=== PATIENT | male | born 1985 | race Caucasian/White ===

== ENCOUNTER 2017-04-09 05:42 | Emergency (ER) | payer MEDICAID, OTHER ==
[~2017-04-09] VITALS: Ht 177.8 cm; Wt 77.0 kg
[2017-04-09 08:01] LABS: HEMATOCRIT 44.4 % (42.0-52.0); HEMOGLOBIN 15.1 g/dL (14.0-18.0); MEAN CORPUSCULAR HEMOGLOBIN 32.7 pg (28.0-32.0); MEAN CORPUSCULAR VOLUME 96.4 fL (80.0-94.0); PLATELET 123 x1000/uL (130-400); RED BLOOD CELL COUNT 4.61 mill/uL (4.7-6.1); RED CELL DISTRIBUTION WIDTH 13.5 % (11.6-14.6)
[2017-04-09 08:09] LABS: CARBON DIOXIDE 32 mEq/L (21-32); CHLORIDE 106 mEq/L (98-107)
[2017-04-09 09:42] VITALS: BP 112/71
== END 2017-04-09 09:45 | disposition home or self-care (01) ==
LOC: ER 06:08
DX: G40.909 Epilepsy, unspecified, not intractable, without status epilepticus (principal); F12.90 Cannabis use, unspecified, uncomplicated; Z88.0 Allergy status to penicillin; Z86.59 Personal history of other mental and behavioral disorders
CPT/HCPCS: 36415; 80048; 85027; 99284

== ENCOUNTER 2017-07-06 05:36 | Emergency (ER) | payer MEDICAID, OTHER ==
[~2017-07-06] VITALS: Ht 170.2 cm; Wt 73.0 kg
[2017-07-06] MEDS ORDERED: SODIUM CHLORIDE 0.9% 1,000 ML IV ONE (05:43)
[2017-07-06 06:34] LABS: BASOPHILS % 0.3 % (0.0-2.0); EOSINOPHILS % 0.5 % (0.0-5.0); HEMATOCRIT. 42.3 % (42.0-52.0); HEMOGLOBIN. 14.5 g/dL (14.0-18.0); LYMPHOCYTES % 15.8 % (20.0-50.0); MEAN CORPUSCULAR HEMOGLOBIN 33.1 pg (28.0-32.0); MEAN CORPUSCULAR VOLUME 96.2 fL (80.0-94.0); MEAN PLATELET VOLUME 11.5 fl (7.4-10.4); MONOCYTES % 5.9 % (2.0-8.0); NEUTROPHILS % 77.5 % (40.0-76.0); PLATELET 122 x1000/uL (130-400); RED CELL DISTRIBUTION WIDTH 13.5 % (11.6-14.6)
[2017-07-06 06:42] LABS: CHLORIDE 104 mEq/L (98-107); ETHANOL BLOOD 12 mg/dL
[2017-07-06 06:47] LABS: CARBAMAZEPINE 0.7 ug/mL (4-12); CREATINE KINASE 59 IU/L (39-308)
[2017-07-06 06:54] LABS: PHENOBARBITAL < 2.1 ug/mL (15.0-40.0); VALPROIC ACID < 3.0 ug/mL (50-100)
[2017-07-06 08:37] LABS: *AMPHETAMINES SCREEN URINE NEGATIVE (NEGATIVE); *BARBITURATES SCREEN URINE NEGATIVE (NEGATIVE); *BENZODIAZEPINES SCREEN URINE NEGATIVE (NEGATIVE); *COCAINE SCREEN URINE NEGATIVE (NEGATIVE); CANNABINOID URINE SCREEN PRESUMTIVE POSITIVE (NEGATIVE); METHADONE URINE SCREEN NEGATIVE (NEGATIVE); OPIATES URINE SCREEN NEGATIVE (NEGATIVE); PHENCYCLIDINE URINE SCREEN NEGATIVE (NEGATIVE)
[2017-07-06] MEDS ORDERED: CARBAMAZEPINE 100MG TABLET CHEW PO ONE (09:45)
[2017-07-06 10:34] VITALS: BP 116/57
== END 2017-07-06 10:36 | disposition home or self-care (01) ==
LOC: ER 05:36
DX: R56.9 Unspecified convulsions (principal); R51 Headache; F32.9 Major depressive disorder, single episode, unspecified; F12.10 Cannabis abuse, uncomplicated; Z88.0 Allergy status to penicillin
CPT/HCPCS: 36415; 80053; 80156; 80165; 80184; 80185; 80305; 82550; 82962; 85025; 96360; 96361; 99285; G0482; J7030

== ENCOUNTER 2017-08-29 20:07 | Inpatient (IN) | payer MEDICAID ==
[~2017-08-29] VITALS: Ht 177.8 cm; Wt 86.6 kg
[2017-08-29] MEDS ORDERED: SODIUM CHLORIDE 0.9% 1,000 ML IV ONE (20:13)
[2017-08-29] MEDS ORDERED: LORAZEPAM 2MG/ML CPJ IV ONE ×2 (20:45→21:30)
[2017-08-29] MEDS ORDERED: LORAZEPAM 2MG/ML CPJ IV NR (21:45)
[2017-08-29 21:52] LABS: HEMATOCRIT. 41.3 % (42.0-52.0); MEAN CORPUSCULAR HEMOGLOBIN 32.7 pg (28.0-32.0); MEAN CORPUSCULAR VOLUME 96.5 fL (80.0-94.0); MEAN PLATELET VOLUME 11.6 fl (7.4-10.4); PLATELET 123 x1000/uL (130-400); RED BLOOD CELL COUNT 4.28 mill/uL (4.7-6.1); RED CELL DISTRIBUTION WIDTH 13.4 % (11.6-14.6)
[2017-08-29 21:55] LABS: CHLORIDE 110 mEq/L (98-107)
[2017-08-29 21:56] LABS: PROTHROMBIN TIME 10.6 sec (9.4-11.6)
[2017-08-29 22:02] LABS: ETHANOL BLOOD < 10 mg/dL
[2017-08-29 22:05] LABS: AMMONIA 35 uMol/L (<32)
[2017-08-29 22:06] LABS: CREATINE KINASE 131 IU/L (39-308)
[2017-08-29 22:10] LABS: CARBAMAZEPINE 1.2 ug/mL (4-12); PLATELET ESTIMATE DECREASED
[2017-08-29 22:14] LABS: PHENOBARBITAL < 2.1 ug/mL (15.0-40.0); VALPROIC ACID < 3.0 ug/mL (50-100)
[2017-08-29] MEDS ORDERED: LACTULOSE 20G/30ML UDC PO NR (22:15)
[2017-08-29] MEDS ORDERED: MAGNESIUM/ALUMINUM HYDROXIDE/SIMETHICONE 30ML UDC PO PRN (22:45)
[2017-08-29] MEDS ORDERED: CLONIDINE 0.1MG TABLET PO PRN (22:45)
[2017-08-29] MEDS ORDERED: DOCUSATE SODIUM 100MG CAPSULE PO PRN (22:45)
[2017-08-29] MEDS ORDERED: ONDANSETRON 4MG ODT PO PRN (22:45)
[2017-08-29] MEDS ORDERED: LORAZEPAM 2MG/ML CPJ IV PRN (22:45)
[2017-08-29] MEDS ORDERED: IPRATROPIUM/ALBUTEROL 0.5-3(2.5)MG/3ML NEB INH PRN (22:45)
[2017-08-29] MEDS ORDERED: PHENYTOIN SODIUM 1,000 MG in SODIUM CHLORIDE 0.9% 100 ML IV NR (23:30)
[2017-08-29] MEDS: SODIUM CHLORIDE 0.9% 1,000 ML IV SCH (23:39)
[2017-08-30] VITALS (9 sets, daily range): BP systolic 103–134; BP diastolic 55–71
[2017-08-30 00:31] LABS: CHLORIDE 107 mEq/L (98-107)
[2017-08-30] MEDS: SODIUM CHLORIDE 0.9% 1,000 ML IV SCH ×2 (01:30→13:46)
[2017-08-30 02:51] LABS: CLARITY URINE CLOUDY (CLEAR); COLOR URINE YELLOW (YELLOW); KETONES URINE NEGATIVE (NEGATIVE); LEUKOCYTE ESTERASE URINE NEGATIVE (NEGATIVE); NITRITE URINE NEGATIVE (NEGATIVE); OCCULT BLOOD URINE NEGATIVE (NEGATIVE); PROTEIN URINE NEGATIVE (NEGATIVE); SPECIFIC GRAVITY URINE 1.014 (1.005-1.030); UROBILINOGEN URINE 0.2 E.U./dL (0.2-1.0)
[2017-08-30 03:10] LABS: *AMPHETAMINES SCREEN URINE NEGATIVE (NEGATIVE); *BARBITURATES SCREEN URINE NEGATIVE (NEGATIVE); *BENZODIAZEPINES SCREEN URINE PRESUMTIVE POSITIVE (NEGATIVE); CANNABINOID URINE SCREEN PRESUMTIVE POSITIVE (NEGATIVE); PHENCYCLIDINE URINE SCREEN NEGATIVE (NEGATIVE)
[2017-08-30 03:11] LABS: *COCAINE SCREEN URINE NEGATIVE (NEGATIVE); METHADONE URINE SCREEN NEGATIVE (NEGATIVE); OPIATES URINE SCREEN NEGATIVE (NEGATIVE)
[2017-08-30] MEDS: ACETAMINOPHEN 325MG TABLET PO PRN ×2 (04:07→13:45)
[2017-08-30] MEDS: ENOXAPARIN 30MG/0.3ML SYR SUBCUT SCH ×2 (08:46→20:37)
[2017-08-30] MEDS ORDERED: CARBAMAZEPINE 200MG TABLET PO SCH (09:00)
[2017-08-30] MEDS ORDERED: ACETAMINOPHEN 650MG SUPP PR PRN (09:15)
[2017-08-30] MEDS ORDERED: HYDROCODONE/ACETAMINOPHEN 5/325MG TABLET PO PRN (09:15)
[2017-08-30] MEDS ORDERED: IPRATROPIUM/ALBUTEROL 0.5-3(2.5)MG/3ML NEB INH PRN (09:15)
[2017-08-30] MEDS ORDERED: NA PHOS,M-B/NA PHOS,DI-BA ENEMA 118ML PR PRN (09:15)
[2017-08-30] MEDS ORDERED: HYDROCODONE/ACETAMINOPHEN 10/325MG TABLET PO PRN (09:15)
[2017-08-30] MEDS ORDERED: ACETAMINOPHEN 650MG/20.3ML UDC GT PRN (09:15)
[2017-08-30] MEDS ORDERED: LORAZEPAM 2MG/ML CPJ IV PRN (09:15)
[2017-08-30] MEDS ORDERED: MAGNESIUM/ALUMINUM HYDROXIDE/SIMETHICONE 30ML UDC PO PRN (09:15)
[2017-08-30] MEDS ORDERED: DIPHENHYDRAMINE 50MG/ML VIAL IV PRN (09:15)
[2017-08-30] MEDS ORDERED: CLONIDINE 0.1MG TABLET PO PRN (09:15)
[2017-08-30] MEDS ORDERED: ONDANSETRON HCL 4MG/2ML VIAL IV PRN (09:15)
[2017-08-30] MEDS ORDERED: ACETAMINOPHEN 325MG TABLET PO PRN (09:15)
[2017-08-30 10:33] LABS: BASOPHILS % 0.2 % (0.0-2.0); EOSINOPHILS % 0.1 % (0.0-5.0); HEMATOCRIT. 38.9 % (42.0-52.0); HEMOGLOBIN. 13.6 g/dL (14.0-18.0); LYMPHOCYTES % 15.7 % (20.0-50.0); MEAN CORPUSCULAR HEMOGLOBIN 33.3 pg (28.0-32.0); MEAN CORPUSCULAR VOLUME 95.3 fL (80.0-94.0); MEAN PLATELET VOLUME 11.1 fl (7.4-10.4); MONOCYTES % 9.5 % (2.0-8.0); NEUTROPHILS % 74.5 % (40.0-76.0); PLATELET 100 x1000/uL (130-400); RED BLOOD CELL COUNT 4.08 mill/uL (4.7-6.1); RED CELL DISTRIBUTION WIDTH 13.3 % (11.6-14.6)
[2017-08-30] MEDS ORDERED: CARB200C4 MT (11:19)
[2017-08-30] MEDS ORDERED: FLUO20CA33 MT (11:19)
[2017-08-30] MEDS ORDERED: MORPHINE SULFATE 2 MG/ML CPJ (NOT FOR IM USE) IV PRN (12:15)
[2017-08-30] MEDS ORDERED: PHENYTOIN SODIUM EXTENDED 100MG CAPSULE PO SCH (14:00)
[2017-08-30] MEDS ORDERED: LORAZEPAM 2MG/ML CPJ IM PRN (17:15)
[2017-08-30] MEDS: FLUOXETINE HCL 20MG CAPSULE PO SCH (17:49)
[2017-08-30] MEDS: PHENYTOIN SODIUM EXTENDED 100MG CAPSULE PO SCH (20:37)
[2017-08-31] MEDS: SODIUM CHLORIDE 0.9% 1,000 ML IV SCH ×2 (00:54→14:33)
[2017-08-31 04:00] VITALS: BP 98/58
[2017-08-31 07:00] LABS: BASOPHILS % 0.4 % (0.0-2.0); EOSINOPHILS % 0.8 % (0.0-5.0); HEMATOCRIT. 39.1 % (42.0-52.0); HEMOGLOBIN. 13.6 g/dL (14.0-18.0); LYMPHOCYTES % 33.3 % (20.0-50.0); MEAN CORPUSCULAR HEMOGLOBIN 33.3 pg (28.0-32.0); MONOCYTES % 8.4 % (2.0-8.0); NEUTROPHILS % 57.1 % (40.0-76.0); PLATELET 95 x1000/uL (130-400); RED BLOOD CELL COUNT 4.08 mill/uL (4.7-6.1); RED CELL DISTRIBUTION WIDTH 12.8 % (11.6-14.6)
[2017-08-31 07:29] LABS: CHLORIDE 107 mEq/L (98-107)
[2017-08-31 08:00] VITALS: BP 115/57
[2017-08-31] MEDS: FLUOXETINE HCL 20MG CAPSULE PO SCH (08:12)
[2017-08-31] MEDS: ENOXAPARIN 30MG/0.3ML SYR SUBCUT SCH ×2 (08:13→21:33)
[2017-08-31 12:00] VITALS: BP 116/68
[2017-08-31] MEDS ORDERED: PHENYTOIN SODIUM 600 MG in SODIUM CHLORIDE 0.9% 100 ML IV NR (13:30)
[2017-08-31 15:34] VITALS: BP 119/70
[2017-08-31 20:00] VITALS: BP 137/84
[2017-08-31] MEDS: PHENYTOIN SODIUM EXTENDED 100MG CAPSULE PO SCH (21:32)
[2017-09-01] VITALS: BP 116/79
[2017-09-01] MEDS: SODIUM CHLORIDE 0.9% 1,000 ML IV SCH (02:29)
[2017-09-01 04:00] VITALS: BP 120/65
[2017-09-01 08:00] VITALS: BP 118/117
[2017-09-01] MEDS: FLUOXETINE HCL 20MG CAPSULE PO SCH (09:11)
[2017-09-01 10:05] LABS: BASOPHILS % 0.4 % (0.0-2.0); EOSINOPHILS % 0.3 % (0.0-5.0); HEMATOCRIT. 42.4 % (42.0-52.0); HEMOGLOBIN. 14.7 g/dL (14.0-18.0); MEAN CORPUSCULAR HEMOGLOBIN 33.3 pg (28.0-32.0); MEAN CORPUSCULAR VOLUME 96.1 fL (80.0-94.0); MEAN PLATELET VOLUME 11.8 fl (7.4-10.4); MONOCYTES % 7.4 % (2.0-8.0); NEUTROPHILS % 69.9 % (40.0-76.0); PLATELET 108 x1000/uL (130-400); RED BLOOD CELL COUNT 4.42 mill/uL (4.7-6.1); RED CELL DISTRIBUTION WIDTH 13.4 % (11.6-14.6)
[2017-09-01 11:20] VITALS: BP 144/83
[2017-09-01 12:00] VITALS: BP 144/83
== END 2017-09-01 12:28 | disposition home or self-care (01) | DRG 351 ==
LOC: ER 20:18 → 8WST 22:19 → EDBEDREQ 22:20 → ENRESERV 22:57
PROVIDERS: ADMIT Internal Medicine; ATTEND Internal Medicine
DX: M62.82 Rhabdomyolysis (principal); E72.20 Disorder of urea cycle metabolism, unspecified; Q28.3 Other malformations of cerebral vessels; D69.6 Thrombocytopenia, unspecified; G40.409 Other generalized epilepsy and epileptic syndromes, not intractable, without status epilepticus; D64.9 Anemia, unspecified; F12.90 Cannabis use, unspecified, uncomplicated; F32.9 Major depressive disorder, single episode, unspecified; F41.9 Anxiety disorder, unspecified; F17.210 Nicotine dependence, cigarettes, uncomplicated; F41.0 Panic disorder [episodic paroxysmal anxiety]; Z91.14 Patient's other noncompliance with medication regimen; Z88.0 Allergy status to penicillin; Z71.51 Drug abuse counseling and surveillance of drug abuser
CPT/HCPCS: 36415; 70450; 70551; 71045; 80048; 80053; 80061; 80156; 80165; 80184; 80185; 80305; 80307; 80329; 81003; 82140; 82550; 82553; 82962; 83605; 83735; 84443; 84484; 85025; 85610; 87040; 87086; 93005; 93970; 96361; 96365; 96375; 96376; 97161; 97165; 99291; G0482; J1165; J1650; J2060; J7030; J7050; A4315

== ENCOUNTER 2017-10-10 05:33 | Emergency (ER) | payer MEDICAID ==
[~2017-10-10] VITALS: Ht 177.8 cm; Wt 82.0 kg
[~2017-10-10 05:33] MED LIST: FLUO20CA33 MT
[2017-10-10 07:49] LABS: BASOPHILS % 0.5 % (0.0-2.0); EOSINOPHILS % 0.4 % (0.0-5.0); HEMATOCRIT. 43.7 % (42.0-52.0); LYMPHOCYTES % 13.8 % (20.0-50.0); MEAN CORPUSCULAR HEMOGLOBIN 33.2 pg (28.0-32.0); MEAN CORPUSCULAR VOLUME 96.7 fL (80.0-94.0); MEAN PLATELET VOLUME 11.5 fl (7.4-10.4); MONOCYTES % 7.7 % (2.0-8.0); NEUTROPHILS % 77.6 % (40.0-76.0); PLATELET 100 x1000/uL (130-400); RED BLOOD CELL COUNT 4.52 mill/uL (4.7-6.1); RED CELL DISTRIBUTION WIDTH 13.6 % (11.6-14.6)
[2017-10-10 07:51] LABS: CHLORIDE 107 mEq/L (98-107)
[2017-10-10] MEDS ORDERED: PHENYTOIN SODIUM 1,000 MG in SODIUM CHLORIDE 0.9% 100 ML IV ONE (08:30)
[2017-10-10 11:09] VITALS: BP 142/73
== END 2017-10-10 11:13 | disposition home or self-care (01) ==
LOC: ER 05:33
DX: G40.909 Epilepsy, unspecified, not intractable, without status epilepticus (principal); S01.552A Open bite of oral cavity, initial encounter; X58.XXXA Exposure to other specified factors, initial encounter; Y93.89 Activity, other specified; Y92.89 Other specified places as the place of occurrence of the external cause; Z88.0 Allergy status to penicillin
CPT/HCPCS: 36415; 80053; 80185; 85025; 96365; 96366; 99285; J1165; J7050

== ENCOUNTER 2017-10-12 20:44 | Emergency (ER) | payer MEDICAID ==
[~2017-10-12] VITALS: Ht 180.3 cm; Wt 120.0 kg
[2017-10-12] MEDS ORDERED: PHEN100C4 PO (21:02)
[2017-10-12] MEDS ORDERED: SODIUM CHLORIDE 0.9% 1,000 ML IV ONE ×2 (21:35→23:21)
[2017-10-12 23:03] LABS: *AMPHETAMINES SCREEN URINE NEGATIVE (NEGATIVE); *BARBITURATES SCREEN URINE NEGATIVE (NEGATIVE); *BENZODIAZEPINES SCREEN URINE NEGATIVE (NEGATIVE); *COCAINE SCREEN URINE NEGATIVE (NEGATIVE)
[2017-10-12 23:04] LABS: CANNABINOID URINE SCREEN PRESUMTIVE POSITIVE (NEGATIVE); METHADONE URINE SCREEN NEGATIVE (NEGATIVE); OPIATES URINE SCREEN NEGATIVE (NEGATIVE); PHENCYCLIDINE URINE SCREEN NEGATIVE (NEGATIVE)
[2017-10-12 23:07] LABS: BASOPHILS % 0.2 % (0.0-2.0); EOSINOPHILS % 0.1 % (0.0-5.0); HEMATOCRIT. 41.2 % (42.0-52.0); HEMOGLOBIN. 14.1 g/dL (14.0-18.0); LYMPHOCYTES % 8.6 % (20.0-50.0); MEAN CORPUSCULAR VOLUME 96.2 fL (80.0-94.0); MEAN PLATELET VOLUME 11.3 fl (7.4-10.4); MONOCYTES % 3.6 % (2.0-8.0); NEUTROPHILS % 87.5 % (40.0-76.0); PLATELET 108 x1000/uL (130-400); RED BLOOD CELL COUNT 4.29 mill/uL (4.7-6.1); RED CELL DISTRIBUTION WIDTH 13.5 % (11.6-14.6)
[2017-10-12 23:09] LABS: CHLORIDE 109 mEq/L (98-107)
[2017-10-12 23:13] LABS: ETHANOL BLOOD 231 mg/dL
[2017-10-13] MEDS ORDERED: PHENYTOIN SODIUM 500 MG in SODIUM CHLORIDE 0.9% 50 ML IV ONE (00:15)
[2017-10-13 01:02] VITALS: BP 112/68
== END 2017-10-13 01:02 | disposition home or self-care (01) ==
LOC: ER 20:51
DX: T40.7X1A Poisoning by cannabis (derivatives), accidental (unintentional), initial encounter (principal); F10.129 Alcohol abuse with intoxication, unspecified; G40.909 Epilepsy, unspecified, not intractable, without status epilepticus; Z88.0 Allergy status to penicillin; Y90.7 Blood alcohol level of 200-239 mg/100 ml; Y92.89 Other specified places as the place of occurrence of the external cause
CPT/HCPCS: 36415; 80048; 80185; 80305; 85025; 96361; 96365; 99285; G0482; J1165; J7030

== ENCOUNTER 2018-03-16 07:22 | Emergency (ER) | payer MEDICAID ==
[~2018-03-16] VITALS: Ht 172.7 cm; Wt 70.0 kg
[~2018-03-16 07:22] MED LIST changes: +PHEN100C4 PO
[2018-03-16] MEDS ORDERED: SODIUM CHLORIDE 0.9% 1,000 ML IV ONE (07:34)
[2018-03-16 08:12] LABS: BASOPHILS % 0.2 % (0.0-2.0); EOSINOPHILS % 0.7 % (0.0-5.0); HEMOGLOBIN. 15.2 g/dL (14.0-18.0); LYMPHOCYTES % 24.6 % (20.0-50.0); MEAN CORPUSCULAR HEMOGLOBIN 33.6 pg (28.0-32.0); MEAN CORPUSCULAR VOLUME 97.5 fL (80.0-94.0); MEAN PLATELET VOLUME 12.5 fl (7.4-10.4); MONOCYTES % 4.7 % (2.0-8.0); NEUTROPHILS % 69.8 % (40.0-76.0); PLATELET 129 x1000/uL (130-400); RED BLOOD CELL COUNT 4.52 mill/uL (4.7-6.1); RED CELL DISTRIBUTION WIDTH 13.4 % (11.6-14.6)
[2018-03-16 08:18] LABS: CHLORIDE 106 mEq/L (98-107)
[2018-03-16 08:24] LABS: ETHANOL BLOOD < 10 mg/dL
[2018-03-16] MEDS ORDERED: PHENYTOIN SODIUM EXTENDED 100MG CAPSULE PO ONE (10:15)
[2018-03-16] MEDS ORDERED: ACETAMINOPHEN 325MG TABLET PO ONE (10:30)
[2018-03-16 13:29] VITALS: BP 110/73
== END 2018-03-16 11:50 | disposition home or self-care (01) ==
LOC: ER 07:22
DX: G40.89 Other seizures (principal); D72.829 Elevated white blood cell count, unspecified; E87.6 Hypokalemia; R73.9 Hyperglycemia, unspecified; R78.89 Finding of other specified substances, not normally found in blood; Z88.0 Allergy status to penicillin; Z79.899 Other long term (current) drug therapy
CPT/HCPCS: 36415; 80053; 80185; 85025; 96360; 96361; 99283; G0482; J7030

== ENCOUNTER 2019-02-02 06:29 | Emergency (ER) | payer SELFPAY ==
[~2019-02-02] VITALS: Ht 177.8 cm; Wt 66.0 kg
[2019-02-02 08:39] LABS: CLARITY URINE CLEAR (CLEAR); COLOR URINE YELLOW (YELLOW); KETONES URINE NEGATIVE (NEGATIVE); LEUKOCYTE ESTERASE URINE NEGATIVE (NEGATIVE); NITRITE URINE NEGATIVE (NEGATIVE); OCCULT BLOOD URINE 1+ (NEGATIVE); PROTEIN URINE 1+ (NEGATIVE); SPECIFIC GRAVITY URINE 1.015 (1.005-1.030); UROBILINOGEN URINE 0.2 E.U./dL (0.2-1.0)
[2019-02-02 08:53] LABS: *AMPHETAMINES SCREEN URINE NEGATIVE (NEGATIVE); *BARBITURATES SCREEN URINE NEGATIVE (NEGATIVE); *BENZODIAZEPINES SCREEN URINE PRESUMTIVE POSITIVE (NEGATIVE); *COCAINE SCREEN URINE NEGATIVE (NEGATIVE); METHADONE URINE SCREEN NEGATIVE (NEGATIVE)
[2019-02-02 08:54] LABS: CANNABINOID URINE SCREEN PRESUMTIVE POSITIVE (NEGATIVE); OPIATES URINE SCREEN NEGATIVE (NEGATIVE); PHENCYCLIDINE URINE SCREEN NEGATIVE (NEGATIVE)
[2019-02-02] MEDS ORDERED: KETOROLAC 30MG/ML VIAL IV ONE (10:00)
[2019-02-02 10:13] LABS: HEMATOCRIT. 39.1 % (42.0-52.0); HEMOGLOBIN. 13.4 g/dL (14.0-18.0); MEAN CORPUSCULAR HEMOGLOBIN 33.4 pg (28.0-32.0); MEAN CORPUSCULAR VOLUME 97.7 fL (80.0-94.0); MEAN PLATELET VOLUME 11.4 fl (7.4-10.4); PLATELET 100 x1000/uL (130-400); RED CELL DISTRIBUTION WIDTH 13.7 % (11.6-14.6)
[2019-02-02 10:18] LABS: CHLORIDE 108 mEq/L (98-107)
[2019-02-02 10:24] LABS: ETHANOL BLOOD < 10 mg/dL
[2019-02-02 10:33] LABS: VALPROIC ACID < 3.0 ug/mL (50-100)
[2019-02-02] MEDS ORDERED: PHENYTOIN SODIUM 1,000 MG in SODIUM CHLORIDE 0.9% 100 ML IV ONE (10:45)
[2019-02-02 10:47] LABS: PLATELET ESTIMATE DECREASED
[2019-02-02 11:09] VITALS: BP 103/49
== END 2019-02-02 12:34 | disposition home or self-care (01) ==
LOC: ER 06:29
DX: G40.909 Epilepsy, unspecified, not intractable, without status epilepticus (principal); R32 Unspecified urinary incontinence; R03.0 Elevated blood-pressure reading, without diagnosis of hypertension
CPT/HCPCS: 36415; 80053; 80165; 80185; 80305; 80320; 81003; 85025; 96365; 96375; 99283; J1165; J1885; J7050; Z7610; G0480

== ENCOUNTER 2019-04-21 04:14 | Inpatient (IN) | payer MEDICAID, MEDICARE ==
[~2019-04-21] VITALS: Ht 175.3 cm; Wt 82.0 kg
[2019-04-21] MEDS ORDERED: MORPHINE SULFATE 4 MG/ML CPJ (NOT FOR IM USE) IV STA (04:33)
[2019-04-21] MEDS ORDERED: SODIUM CHLORIDE 0.9% 1,000 ML IV ONE (04:33)
[2019-04-21] MEDS ORDERED: ONDANSETRON HCL 4MG/2ML INJ IV STA (04:33)
[2019-04-21] MEDS ORDERED: LORAZEPAM 2MG/ML CPJ IV ONE (04:45)
[2019-04-21 05:14] LABS: BASOPHILS % 0.6 % (0.0-2.0); EOSINOPHILS % 0.6 % (0.0-5.0); HEMATOCRIT. 39.2 % (42.0-52.0); HEMOGLOBIN. 13.3 g/dL (14.0-18.0); LYMPHOCYTES % 23.8 % (20.0-50.0); MEAN CORPUSCULAR HEMOGLOBIN 33.4 pg (28.0-32.0); MEAN CORPUSCULAR VOLUME 98.3 fL (80.0-94.0); MEAN PLATELET VOLUME 11.5 fl (7.4-10.4); PLATELET 134 x1000/uL (130-400); RED BLOOD CELL COUNT 3.99 mill/uL (4.7-6.1); RED CELL DISTRIBUTION WIDTH 13.8 % (11.6-14.6)
[2019-04-21 05:18] LABS: CHLORIDE 113 mEq/L (98-107)
[2019-04-21 05:22] LABS: ETHANOL BLOOD < 10 mg/dL
[2019-04-21] MEDS ORDERED: ONDANSETRON HCL 4MG/2ML INJ IV PRN (09:45)
[2019-04-21] MEDS ORDERED: IPRATROPIUM/ALBUTEROL 0.5-3(2.5)MG/3ML NEB NEB PRN (09:45)
[2019-04-21] MEDS ORDERED: CLONIDINE 0.1MG TABLET PO PRN (09:45)
[2019-04-21] MEDS ORDERED: POTASSIUM CHLORIDE INJ 40 MEQ in DEXT 5% WATER 250 ML IV ONE (09:45)
[2019-04-21] MEDS ORDERED: ACETAMINOPHEN 325MG TABLET PO PRN (09:45)
[2019-04-21] MEDS ORDERED: GUAIFENESIN 200MG/10ML SUGAR FREE UDC PO PRN (09:45)
[2019-04-21] MEDS ORDERED: DOCUSATE SODIUM 100MG CAPSULE PO PRN (09:45)
[2019-04-21] MEDS ORDERED: MAGNESIUM/ALUMINUM HYDROXIDE/SIMETHICONE 30ML UDC PO PRN (09:45)
[2019-04-21] MEDS ORDERED: LORAZEPAM 0.5MG TABLET PO PRN (09:45)
[2019-04-21] MEDS ORDERED: NA PHOS,M-B/NA PHOS,DI-BA ENEMA 118ML PR PRN (09:45)
[2019-04-21] MEDS ORDERED: ACETAMINOPHEN 650MG SUPP PR PRN (09:45)
[2019-04-21] MEDS ORDERED: DIPHENHYDRAMINE 50MG/ML VIAL IV PRN (09:45)
[2019-04-21] MEDS ORDERED: DEXT 5%/0.45% NACL 1000ML 1,000 ML IV SCH (10:17)
[2019-04-21] MEDS ORDERED: VALPROIC ACID 250MG CAPSULE PO SCH (11:45)
[2019-04-21] MEDS ORDERED: LEVETIRACETAM 500MG PREMIX 100 ML IV NR (12:00)
[2019-04-21] MEDS ORDERED: LEVETIRACETAM IV SCH (12:00)
[2019-04-21] MEDS ORDERED: PHENYTOIN SODIUM EXTENDED 100MG CAPSULE PO SCH (12:00)
[2019-04-21] MEDS ORDERED: [UNRECOGNIZED DRUG - OTHER] IV SCH (12:00)
[2019-04-21 12:12] LABS: CREATINE KINASE MB FRACTION 1.9 ng/mL (0.5-3.6)
[2019-04-21] MEDS ORDERED: FLUOXETINE HCL 20MG CAPSULE PO SCH (12:15)
[2019-04-21 12:24] LABS: PROTHROMBIN TIME 10.7 sec (9.6-11.0)
[2019-04-21] MEDS ORDERED: PHENYTOIN SODIUM 100MG/2ML VIAL IV SCH (14:00)
[2019-04-21] MEDS ORDERED: PHENYTOIN SODIUM 1,000 MG in SODIUM CHLORIDE 0.9% 100 ML IV ONE (15:30)
[2019-04-21 16:00] VITALS: BP 97/47
[2019-04-21] MEDS ORDERED: HYDROCODONE/ACETAMINOPHEN 5/325MG TABLET PO PRN (17:53)
[2019-04-21] MEDS ORDERED: LEVETIRACETAM 500MG PREMIX 100 ML IV SCH (21:00)
[2019-04-22] MEDS ORDERED: ENOXAPARIN 40MG/0.4ML SYR SUBCUT SCH (09:00)
== END 2019-04-21 18:18 | disposition home or self-care (01) | DRG 53 ==
LOC: ER 04:27 → 5WST 05:47 → EDBEDREQTM 05:51 → EDBEDREQ 05:51 → SUPCPDRO 09:31 → ENRESERV 15:40
PROVIDERS: ADMIT Internal Medicine; ATTEND Internal Medicine
DX: G40.901 Epilepsy, unspecified, not intractable, with status epilepticus (principal); Q28.3 Other malformations of cerebral vessels; G93.89 Other specified disorders of brain; E86.0 Dehydration; D64.9 Anemia, unspecified; F32.9 Major depressive disorder, single episode, unspecified; E87.6 Hypokalemia; R73.9 Hyperglycemia, unspecified; Z88.0 Allergy status to penicillin
CPT/HCPCS: 36415; 70551; 71045; 80053; 80165; 80185; 80320; 82550; 82553; 85025; 93005; 93970; 99291; J1165; J1953; J2060; J2270; J2405; J3480; J7030; J7050; J7060; G0480

== ENCOUNTER 2021-08-29 08:39 | Emergency (ER) | payer MEDICAID, MEDICARE ==
[~2021-08-29] VITALS: Ht 177.8 cm; Wt 80.0 kg
[2021-08-29] MEDS ORDERED: ACETAMINOPHEN 325MG TABLET PO STA (08:49)
[2021-08-29 10:11] LABS: BASOPHILS % 0.6 % (0.0-2.0); EOSINOPHILS % 0.4 % (0.0-5.0); HEMATOCRIT. 40.3 % (42.0-52.0); HEMOGLOBIN. 13.5 g/dL (14.0-18.0); LYMPHOCYTES % 24.2 % (20.0-50.0); MEAN CORPUSCULAR HEMOGLOBIN 33.1 pg (28.0-32.0); MEAN CORPUSCULAR VOLUME 98.7 fL (80.0-94.0); MEAN PLATELET VOLUME 11.6 fl (7.4-10.4); MONOCYTES % 8.1 % (2.0-8.0); NEUTROPHILS % 66.7 % (40.0-76.0); PLATELET 103 x1000/uL (130-400); RED BLOOD CELL COUNT 4.09 mill/uL (4.7-6.1); RED CELL DISTRIBUTION WIDTH 13.8 % (11.6-14.6)
[2021-08-29 10:21] LABS: CHLORIDE 108 mEq/L (98-107)
[2021-08-29 10:36] LABS: ETHANOL BLOOD < 10 mg/dL
[2021-08-29 11:00] LABS: CLARITY URINE CLEAR (CLEAR); COLOR URINE YELLOW (YELLOW); KETONES URINE NEGATIVE (NEGATIVE); LEUKOCYTE ESTERASE URINE NEGATIVE (NEGATIVE); NITRITE URINE NEGATIVE (NEGATIVE); OCCULT BLOOD URINE NEGATIVE (NEGATIVE); PH URINE 7.5 (4.5-8.0); PROTEIN URINE NEGATIVE (NEGATIVE); SPECIFIC GRAVITY URINE 1.012 (1.005-1.030); UROBILINOGEN URINE 0.2 E.U./dL (0.2-1.0)
[2021-08-29] MEDS ORDERED: VALPROIC ACID 250MG CAPSULE PO ONE (11:15)
[2021-08-29] MEDS ORDERED: PHENYTOIN SODIUM EXTENDED 100MG CAPSULE PO ONE (11:15)
[2021-08-29] MEDS ORDERED: IBUPROFEN 600MG TABLET PO ONE (11:15)
[2021-08-29 11:16] LABS: *AMPHETAMINES SCREEN URINE NEGATIVE (NEGATIVE); *BARBITURATES SCREEN URINE NEGATIVE (NEGATIVE); *BENZODIAZEPINES SCREEN URINE NEGATIVE (NEGATIVE); *COCAINE SCREEN URINE NEGATIVE (NEGATIVE); CANNABINOID URINE SCREEN PRESUMTIVE POSITIVE (NEGATIVE); METHADONE URINE SCREEN NEGATIVE (NEGATIVE); OPIATES URINE SCREEN NEGATIVE (NEGATIVE); PHENCYCLIDINE URINE SCREEN NEGATIVE (NEGATIVE)
[2021-08-29 11:30] VITALS: BP 125/60
== END 2021-08-29 13:12 | disposition home or self-care (01) ==
LOC: ER 09:30
DX: R56.9 Unspecified convulsions (principal); Z88.0 Allergy status to penicillin
CPT/HCPCS: 36415; 80053; 80165; 80185; 80305; 80320; 81003; 85025; 93005; 99284; G0480

== ENCOUNTER 2021-08-29 13:56 | Emergency (ER) | payer MEDICAID ==
[~2021-08-29] VITALS: Ht 177.8 cm; Wt 80.0 kg
[2021-08-29 14:40] LABS: BASOPHILS % 0.3 % (0.0-2.0); EOSINOPHILS % 0.2 % (0.0-5.0); HEMATOCRIT. 38.5 % (42.0-52.0); HEMOGLOBIN. 13.1 g/dL (14.0-18.0); LYMPHOCYTES % 29.1 % (20.0-50.0); MEAN CORPUSCULAR HEMOGLOBIN 33.4 pg (28.0-32.0); MEAN CORPUSCULAR VOLUME 98.3 fL (80.0-94.0); MEAN PLATELET VOLUME 11.3 fl (7.4-10.4); MONOCYTES % 7.7 % (2.0-8.0); NEUTROPHILS % 62.7 % (40.0-76.0); PLATELET 99 x1000/uL (130-400); RED BLOOD CELL COUNT 3.92 mill/uL (4.7-6.1); RED CELL DISTRIBUTION WIDTH 13.4 % (11.6-14.6)
[2021-08-29 14:53] LABS: CHLORIDE 105 mEq/L (98-107)
[2021-08-29 15:01] LABS: ETHANOL BLOOD < 10 mg/dL
[2021-08-29] MEDS ORDERED: PHENYTOIN SODIUM 1,000 MG in SODIUM CHLORIDE 0.9% 100 ML IV ONE (15:45)
[2021-08-29] MEDS ORDERED: PHENYTOIN SODIUM 1,000 MG in SODIUM CHLORIDE 0.9% 100 ML IV NR (15:45)
[2021-08-29] MEDS ORDERED: VALPROATE SODIUM 1,000 MG in DEXT 5% WATER 100 ML IV SCH (16:30)
[2021-08-29 20:24] VITALS: BP 111/66
== END 2021-08-29 20:26 | disposition left against medical advice (07) ==
LOC: ER 13:56 → CANBEDREQ 08-30 21:29
DX: R56.9 Unspecified convulsions (principal)
CPT/HCPCS: 36415; 80053; 80320; 85025; 99285; J1165; J3490; J7050; J7060; Z7610; G0480

== ENCOUNTER 2022-07-27 15:26 | Emergency (ER) | payer MEDICAID ==
[~2022-07-27] VITALS: Ht 180.3 cm; Wt 68.0 kg
[2022-07-27 16:32] VITALS: BP 130/79
== END 2022-07-27 17:20 | disposition home or self-care (01) ==
LOC: ER 15:26
DX: R56.9 Unspecified convulsions (principal); Z88.0 Allergy status to penicillin
CPT/HCPCS: 36415; 80165; 80185; 99283

== ENCOUNTER 2022-08-06 15:29 | Emergency (ER) | payer MEDICAID ==
[~2022-08-06] VITALS: Ht 177.8 cm; Wt 64.0 kg
[2022-08-06] MEDS ORDERED: PHENYTOIN SODIUM EXTENDED 100MG CAPSULE PO ONE (16:00)
[2022-08-06] MEDS ORDERED: DIVALPROEX SODIUM 250MG ER TABLET PO ONE (16:00)
[2022-08-06 17:59] VITALS: BP 119/73
== END 2022-08-06 20:00 | disposition home or self-care (01) ==
LOC: ER 15:29
DX: R56.9 Unspecified convulsions (principal); F41.9 Anxiety disorder, unspecified; F32.9 Major depressive disorder, single episode, unspecified; Z88.0 Allergy status to penicillin
CPT/HCPCS: 99283; Z7610

== ENCOUNTER 2023-01-02 17:32 | Emergency (ER) | payer MEDICAID ==
[~2023-01-02] VITALS: Ht 172.7 cm; Wt 66.0 kg
[2023-01-02 17:36] VITALS: O2SAT 95
[2023-01-02] MEDS ORDERED: VALPROIC ACID 250MG CAPSULE PO ONE (18:45)
[2023-01-02 21:23] VITALS: BP 126/71; PULSE 86; RESP 20; TEMP 98.2
== END 2023-01-02 21:30 | disposition home or self-care (01) ==
LOC: ER 17:32
DX: G40.901 Epilepsy, unspecified, not intractable, with status epilepticus (principal); I49.9 Cardiac arrhythmia, unspecified; Z88.0 Allergy status to penicillin
CPT/HCPCS: 82962; 93005; 99283; Z7610 ×3